=== PATIENT | male | born 1990 | race Hispanic/Latino ===

== ENCOUNTER 2024-03-20 01:14 | Emergency (ER) | payer OTHER, SELFPAY ==
--- NOTE | ~2024-03-20 | XR_ITS ---
Clinical Indication: Chest pain PA and lateral views of the chest: Comparison: None Findings: The lungs are clear, without evidence of focal consolidation or pleural effusion. Cardiome diastinal silhouette is within normal limits. Bones and soft tissues are unremarkable. Impression: Normal chest. Reviewed, dictated and finalized at location . Impression: Normal chest.
--- NOTE | 2024-03-20 01:18 | ECG_ITS ---
Test Date: 2024-03-20 01:23:28 Measurements Intervals [place] Rate: 73 P: 46 MO: 149 QRS: 29 QRSD: 114 T: -10 QT: 361 QTc: 399 Interpretive Statements SINUS RHYTHM MODERATE INTRAVENTRICULAR CONDUCTION DELAY [110+ ms QRS DURATION] NONSPECIFIC ST & T-WAVE ABNORMALITY No previous ECG available for comparison Electronically Signed On 03-20-2024 10:40:41 CDT by Ramiro Leija M.D.
[2024-03-20 01:32] VITALS: BP 173/95; PULSE 80; RESP 15; TEMP 36.4; O2SAT 98
[2024-03-20 01:35] LABS: Basophils Percent Auto 0.3 % (0.2-1.2); Eosinophils Absolute Auto 0.1 K/mm3 (0-0.3); Eosinophils Percent Auto 1.4 % (0-4.4); Hematocrit 43.9 % (42.0-52.0); Hemoglobin 14.8 g/dL (14.0-18.0); Immature Granulocyte Absolute 0.01 K/mm3 (0.00-0.031); Immature Granulocyte Percent A 0.2 % (0-0.5); Lymphocytes Absolute Auto 2.19 K/mm3 (0.9-3.2); Mean Corpuscular HGB Conc 33.7 g/dl (32-36); Mean Corpuscular Hemoglobin 30.3 pg (26-34); Mean Platelet Volume 10.5 fl (7.4-10.4); Monocytes Absolute Auto 0.7 K/mm3 (0.1-0.6); Monocytes Percent Auto 10.2 % (2.6-8.5); Neutrophils Absolute Auto 3.5 K/mm3 (1.3-6.7); Neutrophils Percent Auto 53.9 % (45.5-73.1); Platelet Count Result 180 k/mm3 (150-375); Red Blood Count 4.88 M/mm3 (4.6-6.20); Red Cell Distribution Width 12.2 % (11.5-14.5); White Blood Count 6.5 K/mm3 (4.5-10.0)
[2024-03-20 01:45] LABS: Alanine Aminotransferase 52 U/L (6-50); Anion Gap 9 mmol/L (4-12); Aspartate Amino Transferase 36 U/L (17-59); Bilirubin,Total 0.4 mg/dL (0.2-1.3); Blood Urea Nitrogen 16 mg/dL (9-20); Calcium 8.9 mg/dL (8.4-10.2); Carbon Dioxide 25 mmol/L (22-30); Chloride 105 mmol/L (98-107); Estimated CRCL calculation 98 ml/min; Estimated Glomerular Filt Rate 58; Glucose 100 mg/dL (65-110); Potassium 3.5 mmol/L (3.4-5.0); Sodium 139 mmol/L (137-145)
[2024-03-20 01:46] LABS: Albumin Level 4.1 g/dL (3.5-5.1); Alkaline Phosphatase 73 U/L (38-126); Lipase 165 U/L (23-300); Prothrombin Time 13.4 Seconds (11.1-14.7)
[2024-03-20 01:47] LABS: Partial Thromboplastin Time 26.3 Seconds (22.3-36.8)
[2024-03-20 01:57] LABS: Troponin I < 0.012 ng/mL (0.000-0.034)
[2024-03-20 02:38] VITALS: BP 143/87; PULSE 76; RESP 12; O2SAT 100; O2SAT 99
[2024-03-20] MEDS: ASPIRIN 81 MG CHEWABLE TABLET 324 MG PO (02:40)
--- NOTE | 2024-03-20 02:40 | ED.GENADULT ---
HPI - General Adult General Chief complaint: Chest Pain Stated complaint: Chest pain Time Seen by Provider: 03/20/24 02:28 History of Present Illness HPI narrative: Patient is a 34-year-old gentleman who presents emergency department with chief complaint of left-sided chest pain pain. The patient states he has been having symptoms for over a year reports that it has been getting little worse recently but states he is not having pain patient denies shortness of breath denies vomiting denies diarrhea patient reports symptoms are worsened by anything Related Data Allergies Allergy/AdvReac Type Severity Reaction Status Date / Time No Known Allergies Allergy Verified 03/20/24 01:35 Review of Systems Review of Systems: A 10 system review of systems was completed on the patient and is negative except for what is stated in the HPI. Nursing and ancillary documentation was reviewed. Exam Narrative: GENERAL: Well-appearing, well-nourished, and in no acute distress. HEAD: Normocephalic, atraumatic. EYES: PERRLA and EOMI. ENT: Nares clear, no rhinorrhea or epistaxis. Mucous membranes moist. NECK: Supple. CHEST: Clear to auscultation. No respiratory distress. HEART: Regular rate and rhythm. No murmur heard. Normal peripheral pulses. ABDOMEN: Soft, nontender, nondistended, normal active bowel sounds. EXTREMITIES: Normal range of motion. No edema. SKIN: Warm, dry, no rash. NEURO: No focal deficits. Alert and oriented x3. PSYCH: Normal mood and affect. Course Vital Signs Vital signs: Vital Signs Temperature 36.4 C 03/20/24 01:32 Pulse Rate 80 03/20/24 01:32 Respiratory Rate 15 03/20/24 01:32 Blood Pressure 173/95 H 03/20/24 01:32 Pulse Oximetry 98 03/20/24 01:32 Oxygen Delivery Room Air 03/20/24 01:32 Temperature 36.4 C 03/20/24 01:32 Pulse Rate 76 03/20/24 02:38 Respiratory Rate 12 03/20/24 02:38 Blood Pressure 143/87 H 03/20/24 02:38 Pulse Oximetry 100 03/20/24 02:38 Oxygen Delivery Room Air 03/20/24 02:38 Medical Decision Making [facility] Narrative Medical decision making narrative: Differential diagnosis includes noncardiac chest pain, atypical chest pain, ACS The patient's symptoms have been ongoing for an extended period of time EKG showed no acute ischemic changes initial troponin was negative laboratory studies showed no acute findings patient's creatinine was 1.4 the patient will be instructed to follow-up with primary care Vital Signs Vital Signs: Vital Signs Temperature 36.4 C 03/20/24 01:32 Pulse Rate 80 03/20/24 01:32 Respiratory Rate 15 03/20/24 01:32 Blood Pressure 173/95 H 03/20/24 01:32 Pulse Oximetry 98 03/20/24 01:32 Oxygen Delivery Room Air 03/20/24 01:32 Temperature 36.4 C 03/20/24 01:32 Pulse Rate 76 03/20/24 02:38 Respiratory Rate 12 03/20/24 02:38 Blood Pressure 143/87 H 03/20/24 02:38 Pulse Oximetry 100 03/20/24 02:38 Oxygen Delivery Room Air 03/20/24 02:38 Lab Data 03/20/24 01:29 03/20/24 01:30 Labs: Lab Results 03/20/24 03/20/24 Range/Units 01:29 01:30 WBC 6.5 (4.5-10.0) K/mm3 RBC 4.88 (4.6-6.20) M/mm3 Hgb 14.8 (14.0-18.0) g/dL Hct 43.9 (42.0-52.0) % MCV 90.0 (80-100) fl MCH 30.3 (26-34) pg MCHC 33.7 (32-36) g/dl RDW 12.2 (11.5-14.5) % Plt Count 180 (150-375) k/mm3 MPV 10.5 H (7.4-10.4) fl Immature Gran % (Auto) 0.2 (0-0.5) % Neut % (Auto) 53.9 (45.5-73.1) % Lymph % (Auto) 34.0 (18.3-44.2) % [place] % (Auto) 10.2 H (2.6-8.5) % Eos % (Auto) 1.4 (0-4.4) % Baso % (Auto) 0.3 (0.2-1.2) % Lymph # (Auto) 2.19 (0.9-3.2) K/mm3 [place] # (Auto) 0.7 H (0.1-0.6) K/mm3 Eos # (Auto) 0.1 (0-0.3) K/mm3 Baso # (Auto) 0.0 (0.0-0.1) K/mm3 Abs Immat Gran (auto) 0.01 (0.00-0.031) K/mm3 Absolute Neuts (auto) 3.5 (1.3-6.7) K/mm3 Absolute Nucleated RBC 0.000 (0.0-0.012) K/mm3 Nucleat
[2024-03-20 02:55] VITALS: BP 138/82; PULSE 82; RESP 19; TEMP 36.8; O2SAT 98
== END 2024-03-20 03:13 | disposition home or self-care (01) ==
PROVIDERS: Emergency Provider Emergency Medicine
DX: R07.89 Other chest pain (principal); I45.9 Conduction disorder, unspecified; R94.31 Abnormal electrocardiogram [ECG] [EKG]
CPT/HCPCS: 36415; 71046; 80053; 83690; 84484; 85025; 85610; 85730; 93005; 99284; A9270